=== PATIENT | female | born 1965 ===

== ENCOUNTER → 2016-09-09 | Outpatient (REF) ==
--- NOTE | 2016-09-09 11:24 | REP ---
CERVICAL SPINE, TWO VIEWS: HISTORY: Degenerative disc disease. There is no acute fracture. The C3-4 through C6-7 intervertebral discs are decreased in height consistent with disc degeneration. Osteophytes are present on C3 through C6. There are 2 mm of anterior subluxation of C2 on C3 through C4 on C5. There is loss of the normal lordotic curve. IMPRESSION: Degenerative change as described above. Signed by Jorge Weathers MD 09/09/2016 11:28 A
--- NOTE | 2016-09-09 11:25 | REP ---
UPPER LUMBAR SPINE: HISTORY: Degenerative disc disease. COMPARISON: 07/09/2011 There is no acute fracture or subluxation. The intervertebral discs are normal in height. A small anterior osteophyte is present on L1. IMPRESSION: Degenerative change as described above. Signed by Jorge Weathers MD 09/09/2016 11:28 A
== END ==
LOC: M SMT 09:32
PROVIDERS: ATTEND Internal Medicine
DX: M50.820 Other cervical disc disorders, mid-cervical region, unspecified level (principal); M50.821 Other cervical disc disorders at C4-C5 level; M50.822 Other cervical disc disorders at C5-C6 level; M50.823 Other cervical disc disorders at C6-C7 level; M25.78 Osteophyte, vertebrae